=== PATIENT | female | born 1995 | race African-American/Black ===

== ENCOUNTER 2019-07-17 01:26 | Emergency (ER) | payer OTHER ==
[~2019-07-17] VITALS: Ht 162.6 cm; Wt 81.6 kg
[2019-07-17 01:26] VITALS: BP 127/94
[2019-07-17] MEDS: IBUPROFEN 800 MG TAB PO ONE (02:06)
[2019-07-17 02:20] VITALS: BP 127/94
== END 2019-07-17 02:20 | disposition home or self-care (01) ==
LOC: MED 01:46
DX: S00.511A Abrasion of lip, initial encounter (principal); S39.94XA Unspecified injury of external genitals, initial encounter; R03.0 Elevated blood-pressure reading, without diagnosis of hypertension; J45.909 Unspecified asthma, uncomplicated; Z88.8 Allergy status to other drugs, medicaments and biological substances; Z02.89 Encounter for other administrative examinations; Y04.2XXA Assault by strike against or bumped into by another person, initial encounter; Y93.89 Activity, other specified; Y92.89 Other specified places as the place of occurrence of the external cause; Y99.8 Other external cause status
CPT/HCPCS: 90471; 90715; 99283